=== PATIENT | male | born 1970 | race Caucasian/White ===

== ENCOUNTER → 2019-05-03 | Outpatient (REF) | payer OTHER ==
[2019-05-03 16:34] LABS: BASO % 0.6 % (0.0-1.0); EOS # 0.2 10^3/uL (0.0-0.5); EOS % 3.7 % (0.0-3.0); HEMATOCRIT 43.5 % (42.0-52.0); HEMOGLOBIN 15.1 g/dl (13.5-17.5); LYMPH # 1.5 10^3/uL (1.5-5.0); LYMPH % 30.7 % (24.0-44.0); MEAN CORPUSCULAR HEMOGLOBIN 30.7 pg (27.0-33.0); MEAN CORPUSCULAR HGB CONC 34.7 g/dl (32.0-36.5); MEAN CORPUSCULAR VOLUME 88.4 fl (80.0-96.0); MONO # 0.5 10^3/uL (0.0-0.8); MONO % 10.2 % (0.0-5.0); NEUTROPHILS # 2.7 10^3/uL (1.5-8.5); NEUTROPHILS % 54.6 % (36.0-66.0); PLATELET COUNT, AUTOMATED 201 10^3/uL (150-450); RED BLOOD COUNT 4.92 10^6/uL (4.30-6.10); WHITE BLOOD COUNT 4.9 10^3/uL (4.0-10.0)
[2019-05-03 17:15] LABS: ERYTHROCYTE SEDIMENTATION RATE 4 mm/hr (0-15)
== END ==
LOC: M LABDRAW1 11:54
PROVIDERS: ATTEND Orthopaedic Surgery
DX: M84.374A Stress fracture, right foot, initial encounter for fracture (principal)